=== PATIENT | female | born 1960 | race Caucasian/White ===

== ENCOUNTER 2024-10-14 11:21 | Emergency (ER) | payer OTHER, SELFPAY ==
--- NOTE | ~2024-10-14 | CT_ITS ---
EXAMINATION: CT HEAD WITHOUT CONTRAST CLINICAL INFORMATION: Headache with head injury. COMPARISON: None available. TECHNIQUE: Contiguous axial imaging was performed from the skull base to vertex without intravenous administration of contrast. This CT examination was performed using dose optimization techniques as appropriate, variously including the following: *Automated exposure control *Adjustment of mA and/or kV according to patient size (this includes techniques or standardized protocols for targeted exams where dose is matched to indication/reason for exam; i.e. extremities or head) *Use of iterative reconstruction technique FINDINGS: There is no evidence of intracranial hemorrhage or extra-axial fluid collection. There is no mass effect, or edema. No CT evidence of acute territorial infarct. Ventricles, sulci, and cisterns are normal in size and configuration for patient age. No hydrocephalus. No midline shift. Negative hyperdense MCA sign. Negative insular ribbon sign. Negative cisterna magna, normal variant. Mild degree of supratentorial deep white matter hypointensity consistent with small vessel ischemic changes. Normal pituitary. Mild atheromatous calcification of the bilateral carotid siphons and V4 segments vertebral arteries bilaterally. Globes and orbital contents appear normal. No extracranial soft tissue abnormalities. The paranasal sinuses, mastoid air cells, and tympanic cavities are normally aerated. No suspicious bony abnormalities. There are no acute fractures evident. CT/CT head/brain wo IV con IMPRESSION: No acute intracranial abnormality. No fractures. Electronically signed by: Adolph Baxter MD 10/14/2024 12:45 PM [facility]
--- NOTE | ~2024-10-14 | CT_ITS ---
EXAMINATION: CT CERVICAL SPINE WITHOUT CONTRAST CLINICAL INFORMATION: Neck pain. Status post crushing injury COMPARISON: None available. TECHNIQUE: Contiguous axial images through the cervical spine the using 3 mm collimation with bone and soft tissue algorithm. Sagittal and coronal reformatted images acquired. This CT examination was performed using dose optimization techniques as appropriate, variously including the following: *Automated exposure control *Adjustment of mA and/or kV according to patient size (this includes techniques or standardized protocols for targeted exams where dose is matched to indication/reason for exam; i.e. extremities or head) *Use of iterative reconstruction technique DLP: 330 mGy centimeter FINDINGS: Craniocervical junction is intact. Multilevel marginal osteophyte formation and endplate sclerosis subchondral cyst formation and decreased intervertebral disc height at C4-5, C5-6 and C6-7 and C7-T1 levels. 1 mm anterolisthesis C3-4 likely degenerative in nature. Facet joint hypertrophy bilaterally more conspicuous at C2-3 C3-4 C6-7 and C7-T1 levels. C1 is intact. C2 is intact. C3 is intact. C4 is intact. C5 is intact. C6 is intact. C7 is intact. No gross prevertebral compartment hematoma. Tympanic cavities and mastoid air cells are aerated. CT/CT cervical spine wo IV con IMPRESSION: Multilevel cervical spondylosis C4 T1 without acute fracture or trauma-related listhesis. Fleischner guidelines were followed. Electronically signed by: Song Farrell MD 10/14/2024 12:46 PM [facility]
[2024-10-14 11:42] VITALS: BP 153/76; PULSE 77; RESP 20; TEMP 36.9; O2SAT 99; BMI 31.4
--- NOTE | 2024-10-14 11:42 | ED.ABDPAIN ---
HPI - Abdominal Pain General Chief Complaint: Head Injury Stated Complaint: UC sent for CT scan Time Seen by Provider: 10/14/24 13:11 Source: patient, RN notes reviewed and old records reviewed Mode of arrival: ambulatory History of Present Illness ED Provider: Bindu Pagan PA-C HPI narrative: 63-year-old female with no significant past medical history presenting to the ED complaining headache and neck pain s/p hitting top of head on metal bar on Saturday. States misjudged bar, who was talking underneath however stood up beneath it, hitting head pretty hard. Denies anticoagulation use or LOC. reports continued headaches and neck pain, was seen at urgent care this morning sent to the ED. denies numbness, tingling, weakness, vision change or loss, nausea/vomiting Related Data Previous Rx's ?Medication ?Instructions ?Recorded acetaminophen 500 mg tablet 500 mg PO Q6H PRN fever or pain 10/14/24 (Tylenol Extra Strength) #14 tabs cyclobenzaprine 5 mg tablet 5 mg PO Q8H PRN pain (scale score 10/14/24 7-10) 5 days #14 tabs lidocaine 5 % topical patch 1 patch topical DAILY PRN pain #30 10/14/24 (Lidoderm) ea naproxen 500 mg tablet 500 mg PO BID PRN pain 10 days #20 10/14/24 tabs Allergies Allergy/AdvReac Type Severity Reaction Status Date / Time acetaminophen [From Percocet] Allergy Itching Verified 10/14/24 11:45 oxycodone [From Percocet] Allergy Itching Verified 10/14/24 11:45 Review of Systems Review of Systems Yes all other systems are reviewed and are negative Constitutional: Reports as per HPI Denies Abnormal speech present [facility] Past Medical History Attestation statement: The following information was validated with the patient. Source: old records reviewed Social History Social History Do you have a plan to hurt others: No Plan Physical Exam ED Vital Signs: Vital Signs - 24 hr 10/14/24 11:42 Temperature 98.5 F Pulse Rate 77 Respiratory Rate 20 Blood Pressure 153/76 H Pulse Oximetry 99 Oxygen Delivery Method Room Air BMI result Body Mass Index 31.4 Const General: cooperative, healthy appearing and no acute distress Orientation/consciousness: patient oriented x3 Limitations: no limitations HENMT Head: Yes normal to inspection and Yes atraumatic Ears: hearing grossly normal bilaterally General nose exam: Normal external nose present Face and sinus: Yes normal facial exam Eyes General: appearance normal, both eyes and all related structures EOM: EOMs intact bilaterally Neck Other: + midline cervical spinous tenderness. Bilateral paraspinal/trapezius muscle reproducible tenderness. ROM intact. Neck: Yes normal visual inspection and Yes no meningeal signs Resp Effort & Inspection: normal respiratory effort and no respiratory distress Cardio Rate: regular rate Back/Spine/Pelvis Other: No midline thoracic/lumbar spinous tenderness/step-off or deformity Skin Rashes: no rashes Wounds: no wounds Neuro General: patient oriented x3, gait normal, tone normal, moves all extremities, no meningeal signs, no focal motor deficits and CN's II-XI intact bilaterally Cranial nerves: Yes CN's II-XII intact bilaterally and Yes Bilaterally intact EOM present Cognition (Neuro): normal cognition Speech: No Abnormal speech present Gait exam (Neuro): Normal gait present Motor exam (neuro): 5/5 motor strength present throughout Extrem General: Yes normal to inspection Course Course Course Narrative: This is a Rapid Medical Exam performed in triage by Bindu Pagan PA-C. Full HPI, ROS and PE to be performed by primary ED provider. 63yo F presenting to the ED c/o head injury s/p hitting head on metal bar on Saturday. States was ducking under bar & misjudged & stood up under bar. Reports continued POND's & neck pain radiating to shoulders. sent in from . denies AC or LOC PE: +midline cervical spinous ttp & +b/l trapezius muscle ttp. Plan: CT head & C-spine 1308--CT head/brain wo IV con IMPRESSION: No acute intracranial abnormality. No fractures. CT cervical spine wo IV con IMPRESSION: Multilevel cervical spondylosis C4 T1 without acute fracture or trauma-related listhesis. Fleischner guidelines were followed. >Results discussed with patient including worrisome signs and symptoms and strict return precautions, and when to return to the emergency department. They verbalized understanding and feel safe for discharge at this time. Medical Decision Making Medical Decision Making MDM Narrative: 63-year-old female with no significant past medical history presenting to the ED complaining headache and neck pain s/p hitting top of head on metal bar on Saturday. On exam vital signs stable, NAD, nontoxic appearing, physical exam as noted above. Concern for fracture vs MSK pain/strain vs concussion. Lower suspicion for ICH at this time Plan: Head/C-spine CT Please refer to course for remaining clinical decision making, interpretation of labs/imaging results, and discussions with consultants and/or family members. Differential Diagnosis Differential Diagnoses: The differential diagnosis associated with the presentation includes As above Independent Interpretation I performed an independent interpretation of an: CT Scan Radiology Impression Discussion of test interpretation with radiology: I have reviewed the radiologist's reading. External Record Review External record reviewed: Inpatient record, Office record, Outpatient record, Prior outpatient labs, Prior outpatient radiology, Primary care record and Outside ED record Tests considered The following testing was considered but not selected: As above Prescription Management I considered prescription management with: Pain Medication Chronic Conditions Patient?s care impacted by: Other Social Determinants Patient?s care significantly limited by Social Determinants of Health including: Other Social Determinant of Health Discharge Plan Discharge Clinical Impression: Closed head injury, Neck pain Patient Disposition: Home, Self-Care Instructions: Head Injury (ED), Neck Pain (ED) Additional Instructions: Your head CT is unremarkable. Your neck CT shows multilevel spondylosis Your pain is likely musculoskeletal Flexeril is a muscle relaxer, take at night as it makes you drowsy, do not drive, drink alcohol, or operate machinery while taking it Naproxen as an anti-inflammatory / pain medication, take with food Lidoderm patches are numbing patches, apply to painful area In addition take Tylenol at home If symptoms persist or worsen, pain becomes unbearable, you developed urinary retention or incontinence, or weakness return to the ED Prescriptions: New acetaminophen [Tylenol Extra Strength] 500 mg tablet 500 mg PO Q6H PRN (Reason: fever or pain) Qty: 14 0RF lidocaine [Lidoderm] 5 % adhesive patch,medicated 1 patch topical DAILY MDD remove after 12 hours PRN (Reason: pain) Qty: 30 0RF Rx Instructions: leave on most painful area for up to 12 hrs naproxen 500 mg tablet 500 mg PO BID PRN (Reason: pain) 10 Days Qty: 20 0RF cyclobenzaprine 5 mg tablet 5 mg PO Q8H PRN (Reason: pain (scale score 7-10)) 5 Days Qty: 14 0RF Referrals: Katharine Cornejo, RN NEON[facility]AL [Primary Care Provider] - 1 week
[2024-10-14 13:19] VITALS: BP 153/76; PULSE 77; RESP 20; TEMP 36.9; O2SAT 99
== END 2024-10-14 13:21 | disposition home or self-care (01) ==
LOC: HO.ED 13:21
PROVIDERS: Emergency Provider Emergency Medicine; PCP Nurse Practitioner Family
DX: S09.90XA Unspecified injury of head, initial encounter (principal); M54.2 Cervicalgia; R51.9 Headache, unspecified; X58.XXXA Exposure to other specified factors, initial encounter; Y93.9 Activity, unspecified; Y92.9 Unspecified place or not applicable; Y99.8 Other external cause status
CPT/HCPCS: 70450; 72125; 99282; 99284

== ENCOUNTER → 2024-10-14 11:43 | Outpatient (BNV) | payer OTHER, SELFPAY | PROVIDERS: PCP Nurse Practitioner Family; Visit Provider Radiology Diagnostic Radiology | DX: M54.2 Cervicalgia (principal); M47.892 Other spondylosis, cervical region; R51.9 Headache, unspecified | CPT/HCPCS: 70450; 72125 ==